=== PATIENT | female | born 1960 | race American Indian/Alaskan Native ===

== ENCOUNTER 2020-06-21 14:12 | Emergency (ER) | payer MEDICAID ==
[2020-06-21 14:27] VITALS: BP 150/107
--- NOTE | 2020-06-21 14:38 | Event Note ---
ED Screening Note Date of service: 06/21/20 Time: 14:37 ED Screening Note: 59-year-old female presents ED complaining of bright red rectal bleeding x 2 days history of polyp with removal x2 years This initial assessment/diagnostic orders/clinical plan/treatment(s) is/are subject to change based on patients health status, clinical progression and re- assessment by fellow clinical providers in the ED. Further treatment and workup at subsequent clinical providers discretion. Patient/guardian urged not to elope from the ED as their condition may be serious if not clinically assessed and managed. Initial orders include: labs ct
--- NOTE | 2020-06-21 15:45 | Cat Scan Report ---
CT ABDOMEN AND PELVIS WITHOUT CONTRAST INDICATION / CLINICAL INFORMATION: GI Bleed. TECHNIQUE: Axial CT images were obtained through the abdomen and pelvis without IV contrast. All CT scans at is location are performed using CT dose reduction for ALARA by means of automated exposure control. COMPARISON: None available. FINDINGS: LOWER CHEST: Mild coronary artery atherosclerotic calcification. HEPATOBILIARY: Hepatomegaly with diffuse nodular contour which can be seen in the setting of cirrhosi s. No significant biliary abnormality. PANCREAS: 1.0 cm hypoattenuating lesion at the pancreatic tail. SPLEEN: No significant abnormality. ADRENALS: No significant abnormality. GENITOURINARY: Mild left-sided hydronephrosis with dilatation of the renal pelvis as well, however th is tapers normally to the proximal ureter which demonstrates no significant abnormality. No definite obstructing lesion is identified. There is a 1 cm nonobstructing nephrolith on the left. Right-sided extra renal pelvis. GASTROINTESTINAL/MESENTERY: Diverticulosis coli without evidence of diverticulitis. Postoperative camryn nge of proximal colon resection with satisfactory appearance at the anastomosis. No evidence of bowel obstruction or inflammation. No free air or significant free fluid. Multiple normal-sized mesenteric lymph nodes. RETROPERITONEUM: Multiple normal-sized retroperitoneal lymph nodes without evidence of pathologic enl argement. REPRODUCTIVE ORGANS: No significant abnormality. VASCULAR: Mild atherosclerotic calcification without acute abnormality. SKELETAL SYSTEM: No significant abnormality. ADDITIONAL FINDINGS: No significant abnormality. IMPRESSION: 1. No acute abdominopelvic abnormality. 2. Hepatomegaly with diffuse nodular contour suggesting cirrhosis. 3. 1 cm hypoattenuating lesion at the pancreatic tail possibly representing an IPMN. Consider further evaluation with MRCP. 4. Mild left-sided hydronephrosis without definite obstructing lesion. Findings could be secondary to proximal ureteral stricture. A 1 cm left-sided nonobstructing nephrolith is present. Signer Name: Nnamdi Edmonds MD Signed: 06/21/2020 3:41 PM Workstation Name: [id number]
[2020-06-21 15:57] LABS: Basophils % (Auto) 0.9 % (0.0-1.8); Eosinophils # (Auto) 0.1 K/mm3 (0.0-0.4); Eosinophils % (Auto) 2.1 % (0.0-4.3); Hematocrit 35.2 % (30.3-42.9); Hemoglobin 12.1 gm/dl (10.1-14.3); Lymphocytes # (Auto) 2.4 K/mm3 (1.2-5.4); Mean Corpuscular HGB Conc 34 % (30-34); Mean Corpuscular Volume 100 fl (79-97); Monocytes # (Auto) 0.4 K/mm3 (0.0-0.8); Monocytes % (Auto) 7.9 % (0.0-7.3); Platelet Count 251 K/mm3 (140-440); Red Blood Count 3.51 M/mm3 (3.65-5.03); Red Cell Distribution Width 15.2 % (13.2-15.2)
[2020-06-21 16:02] LABS: Alanine Aminotransferase 18 units/L (7-56); Albumin 3.8 g/dL (3.9-5); BUN/Creatinine Ratio 14; Blood Urea Nitrogen 13 mg/dL (7-17); Calcium 9.2 mg/dL (8.4-10.2); Hemolysis Index 4
[2020-06-21 16:17] LABS: INR 1.24 (0.87-1.13)
[2020-06-21 16:18] LABS: Partial Thromboplastin Time 29.7 Sec. (24.2-36.6)
[2020-06-21] MEDS ORDERED: FAMOTIDINE 20 MG TAB PO ONE (16:30)
[2020-06-21] MEDS ORDERED: POTASSIUM CHLORIDE ER 20 MEQ TAB PO ONE (16:30)
[2020-06-21] MEDS ORDERED: ONDANSETRON 4 MG ODT TAB PO ONE (16:30)
--- NOTE | 2020-06-21 16:36 | Emergency Department Report ---
HPI - General Chief Complaint: GI Bleed PUI?: No Time Seen by Provider: 06/21/20 16:17 - HPI HPI: Room 26 The patient is a 59-year-old female present with a chief complaint of abdominal pain and dark stool. The patient states she came to the emergency department because yesterday she developed epigastric abdominal discomfort. Patient states she accidentally soiled herself while in the store when she went home she noticed her stool was black. Patient missed to taking Pepto-Bismol last night for her abdominal pain. Patient denies nausea or vomiting. Patient currently gives her epigastric abdominal pain a score of 6/10 ED Past Medical Hx - Past Medical History Previous Medical History?: Yes Hx Hypertension: Yes Hx Arthritis: Yes Additional medical history: Fibromyalgia - Surgical History Additional Surgical History: Hysterectomy, colonic polyp removal - Family History Family history: no significant - Social History Smoking Status: Never Smoker Substance Use Type: Alcohol (Frequently), Marijuana - Medications Home Medications: Home Medications Medication Instructions Recorded Confirmed Last Taken Type Pantoprazole [Protonix] 40 mg PO QDAY #60 tablet 06/21/20 Unknown Rx ED Review of Systems ROS: Stated complaint: DARK STOOL/ABD PAIN Other details as noted in HPI Constitutional: no symptoms reported Respiratory: no symptoms reported Endocrine: no symptoms reported Gastrointestinal: abdominal pain, melena. denies: nausea, vomiting Physical Exam - Physical Exam Vital Signs: Vital Signs 06/21/20 06/21/20 14:23 16:22 Temperature 98.2 F Pulse Rate 80 Respiratory 18 18 Rate Blood Pressure 150/107 [Right] O2 Sat by Pulse 98 Oximetry Physical Exam: GENERAL: The patient is well-developed well-nourished female lying on stretcher not appearing to be in acute distress. [] HEENT: Normocephalic. Atraumatic. Extraocular motions are intact. Patient has moist mucous membranes. NECK: Supple. Trachea midline CHEST/LUNGS: Clear to auscultation. There is no respiratory distress noted. HEART/CARDIOVASCULAR: Regular. There is no tachycardia. There is no gallop rub or murmur. ABDOMEN: Abdomen is soft, with mild discomfort to palpation in the midepigastric region. Patient has normal bowel sounds. There is no abdominal distention. SKIN: There is no rash. There is no edema. There is no diaphoresis. NEURO: The patient is awake, alert, and oriented. The patient is cooperative. The patient has normal speech MUSCULOSKELETAL: There is no evidence of acute injury. ED Course Vital Signs 06/21/20 06/21/20 14:23 16:22 Temperature 98.2 F Pulse Rate 80 Respiratory 18 18 Rate Blood Pressure 150/107 [Right] O2 Sat by Pulse 98 Oximetry - Consultations Consultation #1: 06/21/20 18:31 GI paged 06/21/20 18:[address] Ghotra-states patient may be discharged home. Recommends initiating Protonix having patient follow-up in the office ED Medical Decision Making - Lab Data Result diagrams: 06/21/20 15:07 06/21/20 15:07 Laboratory Tests 06/21/20 06/21/20 06/21/20 15:07 15:07 15:07 WBC 5.4 RBC 3.51 L Hgb 12.1 Hct 35.2 MCV 100 H MCH 34 H MCHC 34 RDW 15.2 Plt Count 251 Lymph % (Auto) 44.0 H Laporte % (Auto) 7.9 H Eos % (Auto) 2.1 Baso % (Auto) 0.9 Lymph # 2.4 Laporte # 0.4 Eos # 0.1 Baso # 0.0 Seg Neutrophils % 45.1 Seg Neutrophils # 2.4 PT 15.8 H INR 1.24 H APTT 29.7 Sodium 136 L Potassium 3.0 L Chloride 96.7 L Carbon Dioxide 24 Anion Gap 18 BUN 13 Creatinine 0.9 Estimated GFR > 60 BUN/Creatinine Ratio 14 Glucose 102 H Calcium 9.2 Total Bilirubin 0.80 AST 37 ALT 18 Alkaline Phosphatase 105 Total Protein 9.3 H Albumin 3.8 L Albumin/Globulin Ratio 0.7 Lipase 27 - Radiology Data Radiology results: report reviewed (CT abdomen pelvis), image reviewed (CT abdomen pelvis) [facility] [address] [place] [address] Cat Scan Report Signed Patient: RITU CHAVIRA MR#: [id number] : 1960 Acct:[id number] Age/Sex: 59 / F ADM Date: 06/21/20 Loc: ED Attending Dr: Ordering Physician: CIPRIANO VELAZQUEZ MD Date of Service: 06/21/20 Procedure(s): CT abdomen pelvis w con Accession Number(s): [id number] cc: CIPRIANO VELAZQUEZ MD CT ABDOMEN AND PELVIS WITH IV CONTRAST 4:41 PM INDICATION: Epigastric discomfort. COMPARISON: CT abdomen and pelvis without contrast earlier the same day. TECHNIQUE: All CT scans at this facility use dose modulation, automated exposure control, iterative reconstruction or weight based dosing, when appropriate, to reduce radiation dose to as low as reasonably achievable. FINDINGS: Lung Bases: No significant abnormality. Skeletal System: No acute abnormality. ABDOMEN: Liver: The liver has a somewhat lobulated contour without focal lesion. Gallbladder: No significant abnormality. Bile Ducts: No significant abnormality. Pancreas: There is a 1 cm hypodensity in the pancreatic tail. This could be a simple cyst or cystic neoplasm. Spleen: No significant abnormality. Adrenals: No significant abnormality. Right Kidney: No significant abnormality. Left Kidney: Previously seen 1 cm left renal stone has flipped into the extra renal pelvis. There is no hydronephrosis. Upper GI tract: No significant abnormality. Lymph Nodes: No significant adenopathy. Aorta: No significant abnormality. Additional Findings: No significant abnormality. PELVIS: Colon: No acute abnormality. There has been prior partial right colectomy. Urinary Bladder and Distal Ureters: The appendix is largely decompressed limiting its evaluation. Appendix: Removed. Lymph Nodes: No significant adenopathy. Additional Findings: None. IMPRESSION: 1. Hepatic cirrhosis. No ascites or splenomegaly. There are a few small varices. 2. 1 cm cystic focus in the pancreatic tail. Could be a simple cyst. Cystic pancreatic neoplasm could have this appearance. Guidelines suggest follow-up CT in one year. 3. Additional, incidental findings as above Signer Name: Boo Andujar MD Signed: 06/21/2020 5:37 PM Workstation Name: [id number] Transcribed By: NARESH Dictated By: Boo Andujar MD Electronically Authenticated By: Boo Andujar MD Signed Date/Time: 06/21/201736 DD/ 30 TD/TT: - Differential Diagnosis GI bleed, gastritis, pancreatitis, peptic ulcer disease, Critical care attestation.: If time is entered above; I have spent that time in minutes in the direct care of this critically ill patient, excluding procedure time. ED Disposition Clinical Impression: Acute abdominal pain, Pancreatic cyst, Esophageal varices without bleeding, Cirrhosis Disposition: DC- TO HOME OR SELFCARE Is pt being admited?: No Does the pt Need Aspirin: No Condition: Stable Instructions: Acute Abdominal Pain (ED) Additional Instructions: Return to the emergency department should you develop worsening symptoms, inability to tolerate food or liquids, high fever or any other concerns Prescriptions: Pantoprazole [Protonix] 40 mg PO QDAY #60 tablet Referrals: [facility] MD REFUGIO [Primary Care Provider] - 3-5 Days SACHIN GHOTRA MD [Staff Physician] - 3-5 Days (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 Please follow-up with him for further evaluation) Forms: Accompanied Note Time of Disposition: 19:04
--- NOTE | 2020-06-21 17:41 | Cat Scan Report ---
CT ABDOMEN AND PELVIS WITH IV CONTRAST 4:41 PM INDICATION: Epigastric discomfort. COMPARISON: CT abdomen and pelvis without contrast earlier the same day. TECHNIQUE: All CT scans at this facility use dose modulation, automated exposure control, iterative reconstructi on or weight based dosing, when appropriate, to reduce radiation dose to as low as reasonably achieva ble. FINDINGS: Lung Bases: No significant abnormality. Skeletal System: No acute abnormality. ABDOMEN: Liver: The liver has a somewhat lobulated contour without focal lesion. Gallbladder: No significant abnormality. Bile Ducts: No significant abnormality. Pancreas: There is a 1 cm hypodensity in the pancreatic tail. This could be a simple cyst or cystic n eoplasm. Spleen: No significant abnormality. Adrenals: No significant abnormality. Right Kidney: No significant abnormality. Left Kidney: Previously seen 1 cm left renal stone has flipped into the extra renal pelvis. There is no hydronephrosis. Upper GI tract: No significant abnormality. Lymph Nodes: No significant adenopathy. Aorta: No significant abnormality. Additional Findings: No significant abnormality. PELVIS: Colon: No acute abnormality. There has been prior partial right colectomy. Urinary Bladder and Distal Ureters: The appendix is largely decompressed limiting its evaluation. Appendix: Removed. Lymph Nodes: No significant adenopathy. Additional Findings: None. IMPRESSION: 1. Hepatic cirrhosis. No ascites or splenomegaly. There are a few small varices. 2. 1 cm cystic focus in the pancreatic tail. Could be a simple cyst. Cystic pancreatic neoplasm coul d have this appearance. Guidelines suggest follow-up CT in one year. 3. Additional, incidental findings as above Signer Name: Boo Andujar MD Signed: 06/21/2020 5:37 PM Workstation Name: [id number]
== END 2020-06-21 19:19 | disposition home or self-care (01) ==
LOC: ED 14:12
DX: K86.2 Cyst of pancreas (principal); I85.10 Secondary esophageal varices without bleeding; K74.60 Unspecified cirrhosis of liver; R10.13 Epigastric pain; I10 Essential (primary) hypertension; M19.91 Primary osteoarthritis, unspecified site; F12.10 Cannabis abuse, uncomplicated; Z90.710 Acquired absence of both cervix and uterus; Z98.890 Other specified postprocedural states; Z79.899 Other long term (current) drug therapy
CPT/HCPCS: 36415; 74176; 74177; 80053; 82270; 82271; 83690; 85025; 85610; 85730; 99285; Q9967; Q0162